=== PATIENT | male | born 1965 | race Caucasian/White ===

== ENCOUNTER 2018-01-31 11:14 | Outpatient (CLI) | payer MEDICAID ==
[2018-01-31 17:36] LABS: BASOPHILS % (AUTO) 0.6 %; EOSINOPHILS # (AUTO) 0.2 10^3/uL (0.0-0.7); EOSINOPHILS % (AUTO) 2.6 %; HGB - HEMOGLOBIN 14.1 g/dL (14.0-18.0); LYMPHOCYTES # (AUTO) 1.6 10^3/uL (1.5-3.5); LYMPHOCYTES % (AUTO) 19.9 %; MEAN CORPUSCULAR HEMOGLOBIN 30.5 pg (27.0-31.0); MEAN CORPUSCULAR VOLUME 92.4 fL (80.0-94.0); MEAN PLATELET VOLUME 9.7 fL (7.4-11.4); MONOCYTES # (AUTO) 0.9 10^3/uL (0.0-1.0); NEUTROPHILS # (AUTO) 5.3 10^3/uL (1.5-6.6); NEUTROPHILS % (AUTO) 65.9 %; PLT - PLATELET COUNT 165 10^3/uL (130-450); RED BLOOD COUNT 4.64 10^6/uL (4.70-6.10); RED CELL DISTRIBUTION WIDTH 13.9 % (12.0-15.0); WHITE BLOOD COUNT 8.1 x10^3/uL (4.8-10.8)
[2018-01-31 17:44] LABS: HB2 TOTAL 15.9 g/dL; HEMOGLOBIN A1C 0.63 g/dL; HEMOGLOBIN A1C % 5.8 % (4.6-6.2)
[2018-01-31 17:45] LABS: ALBUMIN 4.7 g/dL (3.2-5.5); ALBUMIN/GLOBULIN RATIO 1.7 (1.0-2.2); ALKALINE PHOSPHATASE 100 IU/L (42-121); ALT ALANINE AMINOTRANSFERASE 82 IU/L (10-60); AST ASPARTATE AMINOTRANSFERASE 56 IU/L (10-42); BILIRUBIN,TOTAL 0.7 mg/dL (0.2-1.0); BUN - BLOOD UREA NITROGEN 14 mg/dL (6-20); CALCIUM 9.3 mg/dL (8.5-10.3); CARBON DIOXIDE - CO2 24 mmol/L (21-32); CHLORIDE 97 mmol/L (101-111); CHOL/HDL RATIO 2.2 (<5.0); CHOLESTEROL 210 mg/dL; CREATININE 0.7 mg/dL (0.6-1.2); GFR - MDRD 118 (>89); GLUCOSE 119 mg/dL (70-100); HDL CHOLESTEROL 94 mg/dL; LDL CHOLESTEROL,CALCULATED 102 mg/dL; LDL/HDL RATIO 1.1 (<3.6); SODIUM 130 mmol/L (135-145); TOTAL PROTEIN 7.5 g/dL (6.7-8.2); VLDL CHOLESTEROL 14 mg/dL
== END 2018-01-31 11:15 | disposition home or self-care (01) ==
LOC: LAB.F 11:14
PROVIDERS: ATTEND Nurse Practitioner Family
DX: I10 Essential (primary) hypertension (principal); R73.02 Impaired glucose tolerance (oral); F32.9 Major depressive disorder, single episode, unspecified; Z13.6 Encounter for screening for cardiovascular disorders; Z12.5 Encounter for screening for malignant neoplasm of prostate
CPT/HCPCS: 36415; 80053; 80061; 83036; 83721; 84153; 84443; 85025

== ENCOUNTER 2018-02-21 14:45 | Outpatient (CLI) | payer MEDICAID ==
--- NOTE | 2018-02-22 09:14 | Ultrasound Report ---
RIGHT UPPER QUADRANT ULTRASOUND: 02/21/2018 CLINICAL INDICATION: Elevated LFTs. TECHNIQUE: Real-time scanning was performed with cash applications representative static images obtained. FINDINGS: The liver measures 16.1 cm. Hepatic echogenicity is diffusely increased, compatible with fatty infiltration. No focal parenchymal lesion or intrahepatic biliary dilatation is present. The common bile duct measures 5 mm. The gallbladder is normal. The right kidney measures 10.4 cm, and demonstrates no hydronephrosis. No free fluid is present. IMPRESSION: FATTY INFILTRATION OF THE LIVER. NO EVIDENCE OF CHOLELITHIASIS OR BILIARY DILATATION. TD: 02/22/2018 08:47
== END 2018-02-21 14:46 | disposition home or self-care (01) ==
LOC: DI 14:45
PROVIDERS: ATTEND Nurse Practitioner Family
DX: R79.89 Other specified abnormal findings of blood chemistry (principal); K76.0 Fatty (change of) liver, not elsewhere classified
CPT/HCPCS: 76705

== ENCOUNTER 2019-02-22 11:21 | Outpatient (CLI) | payer MEDICAID ==
[2019-02-22 17:41] LABS: BASOPHILS % (AUTO) 0.4 %; EOSINOPHILS # (AUTO) 0.2 10^3/uL (0.0-0.7); EOSINOPHILS % (AUTO) 2.6 %; HGB - HEMOGLOBIN 15.3 g/dL (14.0-18.0); LYMPHOCYTES # (AUTO) 1.6 10^3/uL (1.5-3.5); LYMPHOCYTES % (AUTO) 20.9 %; MEAN CORPUSCULAR HEMOGLOBIN 31.1 pg (27.0-31.0); MEAN CORPUSCULAR HGB CONC 33.2 g/dL (32.0-36.0); MEAN CORPUSCULAR VOLUME 93.5 fL (80.0-94.0); MONOCYTES # (AUTO) 0.8 10^3/uL (0.0-1.0); MONOCYTES % (AUTO) 9.8 %; NEUTROPHILS # (AUTO) 5.1 10^3/uL (1.5-6.6); NEUTROPHILS % (AUTO) 66.3 %; PLT - PLATELET COUNT 174 10^3/uL (130-450); RED BLOOD COUNT 4.92 10^6/uL (4.70-6.10); RED CELL DISTRIBUTION WIDTH 12.8 % (12.0-15.0); WHITE BLOOD COUNT 7.8 x10^3/uL (4.8-10.8)
[2019-02-22 18:36] LABS: ALBUMIN 4.5 g/dL (3.2-5.5); ALBUMIN/GLOBULIN RATIO 1.6 (1.0-2.2); ALKALINE PHOSPHATASE 94 IU/L (42-121); ALT ALANINE AMINOTRANSFERASE 67 IU/L (10-60); AST ASPARTATE AMINOTRANSFERASE 42 IU/L (10-42); BILIRUBIN,TOTAL 0.7 mg/dL (0.2-1.0); BUN - BLOOD UREA NITROGEN 17 mg/dL (6-20); CALCIUM 9.7 mg/dL (8.5-10.3); CARBON DIOXIDE - CO2 28 mmol/L (21-32); CHLORIDE 102 mmol/L (101-111); CHOL/HDL RATIO 2.4 (<5.0); CHOLESTEROL 209 mg/dL; CREATININE 0.8 mg/dL (0.6-1.2); GFR - MDRD 100 (>89); GLUCOSE 118 mg/dL (70-100); HDL CHOLESTEROL 88 mg/dL; LDL CHOLESTEROL,CALCULATED 105 mg/dL; LDL/HDL RATIO 1.2 (<3.6); SODIUM 140 mmol/L (135-145); TOTAL PROTEIN 7.3 g/dL (6.7-8.2); VLDL CHOLESTEROL 16 mg/dL
[2019-02-22 18:37] LABS: HEMOGLOBIN A1C 0.56 g/dL; HEMOGLOBIN A1C % 5.4 % (4.6-6.2)
== END 2019-02-22 11:22 | disposition home or self-care (01) ==
LOC: LAB.F 11:21
PROVIDERS: ATTEND Registered Nurse
DX: R79.89 Other specified abnormal findings of blood chemistry (principal); Z13.6 Encounter for screening for cardiovascular disorders; I10 Essential (primary) hypertension
CPT/HCPCS: 36415; 80053; 80061; 83036; 83721; 84443; 85025

== ENCOUNTER 2020-03-18 10:10 | Outpatient (CLI) | payer MEDICAID ==
[2020-03-18 15:13] LABS: BASOPHILS % (AUTO) 0.6 %; EOSINOPHILS # (AUTO) 0.2 10^3/uL (0.0-0.7); EOSINOPHILS % (AUTO) 3.4 %; HGB - HEMOGLOBIN 13.6 g/dL (14.0-18.0); LYMPHOCYTES # (AUTO) 1.4 10^3/uL (1.5-3.5); LYMPHOCYTES % (AUTO) 20.8 %; MEAN CORPUSCULAR HEMOGLOBIN 30.6 pg (27.0-31.0); MEAN CORPUSCULAR HGB CONC 32.2 g/dL (32.0-36.0); MEAN PLATELET VOLUME 11.3 fL (7.4-11.4); MONOCYTES # (AUTO) 0.7 10^3/uL (0.0-1.0); MONOCYTES % (AUTO) 10.3 %; NEUTROPHILS # (AUTO) 4.3 10^3/uL (1.5-6.6); NEUTROPHILS % (AUTO) 64.6 %; PLT - PLATELET COUNT 171 10^3/uL (130-450); RED BLOOD COUNT 4.44 10^6/uL (4.70-6.10); RED CELL DISTRIBUTION WIDTH 13.9 % (12.0-15.0); WHITE BLOOD COUNT 6.7 x10^3/uL (4.8-10.8)
[2020-03-18 15:40] LABS: ALBUMIN 4.5 g/dL (3.2-5.5); ALBUMIN/GLOBULIN RATIO 1.7 (1.0-2.2); ALKALINE PHOSPHATASE 96 IU/L (42-121); ALT ALANINE AMINOTRANSFERASE 47 IU/L (10-60); AST ASPARTATE AMINOTRANSFERASE 39 IU/L (10-42); BILIRUBIN,TOTAL 0.6 mg/dL (0.2-1.0); BUN - BLOOD UREA NITROGEN 12 mg/dL (6-20); CALCIUM 9.5 mg/dL (8.5-10.3); CARBON DIOXIDE - CO2 29 mmol/L (21-32); CHLORIDE 104 mmol/L (101-111); CHOLESTEROL 212 mg/dL; CREATININE 0.7 mg/dL (0.6-1.2); GLUCOSE 108 mg/dL (70-100); HDL CHOLESTEROL 106 mg/dL; LDL CHOLESTEROL,CALCULATED 96 mg/dL; LDL/HDL RATIO 0.9 (<3.6); SODIUM 140 mmol/L (135-145); TOTAL PROTEIN 7.1 g/dL (6.7-8.2); VLDL CHOLESTEROL 10 mg/dL
[2020-03-18 15:46] LABS: PSA FREE 0.056 ng/mL (0.16-2.81)
[2020-03-18 15:47] LABS: PSA TOTAL 0.332 ng/mL (0.000-2.000)
== END 2020-03-18 10:11 | disposition home or self-care (01) ==
LOC: LAB.S 10:10
PROVIDERS: ATTEND Registered Nurse
DX: R73.9 Hyperglycemia, unspecified (principal); R79.89 Other specified abnormal findings of blood chemistry; R00.2 Palpitations; F32.9 Major depressive disorder, single episode, unspecified; I10 Essential (primary) hypertension; Z12.5 Encounter for screening for malignant neoplasm of prostate
CPT/HCPCS: 36415; 80053; 80061; 83721; 84153; 84154; 84443; 85025

== ENCOUNTER 2020-05-12 17:18 | Outpatient (CLI) | payer MEDICAID ==
--- NOTE | 2020-05-12 17:53 | XRAY Report ---
PROCEDURE: Hip w/Pelvis 2-3V RT INDICATIONS: RT GROIN PAIN TECHNIQUE: AP pelvis with lateral view(s) of the right hip(s). COMPARISON: 12/25/2015. FINDINGS: Bones: No fractures or dislocations. Asymmetric severe right hip joint osteophytic changes are seen . No evidence of avascular necrosis of femoral head. Mild to moderate left hip joint osteoarthritis i s also noted. Pelvic ring appears intact. No suspicious bony lesions. Soft tissues: The visualized bowel gas pattern is normal. No suspicious soft tissue calcifications. IMPRESSION: Severe right hip joint osteophyte is. No fracture or dislocation. No evidence of avascula r necrosis of femoral head. Reviewed by: Timothy Russell MD on 05/12/2020 5:52 PM PDT Approved by: Timothy Russell MD on 05/12/2020 5:52 PM PDT Station ID: [id number]
== END 2020-05-12 17:19 | disposition home or self-care (01) ==
LOC: DI 17:18
PROVIDERS: ATTEND Registered Nurse
DX: M25.751 Osteophyte, right hip (principal)

== ENCOUNTER 2020-09-02 13:40 | Outpatient (CLI) | payer MEDICAID ==
[2020-09-02 20:00] LABS: BASOPHILS # (AUTO) 0.1 10^3/uL (0.0-0.1); BASOPHILS % (AUTO) 0.7 %; EOSINOPHILS # (AUTO) 0.2 10^3/uL (0.0-0.7); EOSINOPHILS % (AUTO) 2.5 %; HGB - HEMOGLOBIN 13.9 g/dL (14.0-18.0); LYMPHOCYTES # (AUTO) 1.7 10^3/uL (1.5-3.5); MEAN CORPUSCULAR HEMOGLOBIN 31.2 pg (27.0-31.0); MEAN CORPUSCULAR HGB CONC 32.9 g/dL (32.0-36.0); MEAN CORPUSCULAR VOLUME 94.8 fL (80.0-94.0); MEAN PLATELET VOLUME 11.9 fL (7.4-11.4); MONOCYTES # (AUTO) 0.9 10^3/uL (0.0-1.0); MONOCYTES % (AUTO) 10.9 %; NEUTROPHILS # (AUTO) 5.5 10^3/uL (1.5-6.6); NEUTROPHILS % (AUTO) 65.5 %; PLT - PLATELET COUNT 176 10^3/uL (130-450); RED BLOOD COUNT 4.46 10^6/uL (4.70-6.10); RED CELL DISTRIBUTION WIDTH 12.9 % (12.0-15.0); WHITE BLOOD COUNT 8.4 x10^3/uL (4.8-10.8)
[2020-09-02 20:20] LABS: ALBUMIN 4.4 g/dL (3.2-5.5); ALBUMIN/GLOBULIN RATIO 1.6 (1.0-2.2); BILIRUBIN,TOTAL 0.6 mg/dL (0.2-1.0); CALCIUM 9.5 mg/dL (8.5-10.3); CREATININE 0.8 mg/dL (0.6-1.2); TOTAL PROTEIN 7.2 g/dL (6.7-8.2)
== END 2020-09-02 13:41 | disposition home or self-care (01) ==
LOC: LAB.S 13:40
PROVIDERS: ATTEND Family Medicine
DX: I10 Essential (primary) hypertension (principal); R73.9 Hyperglycemia, unspecified; M16.11 Unilateral primary osteoarthritis, right hip
CPT/HCPCS: 36415; 80053; 85025

== ENCOUNTER 2020-09-18 11:48 | Outpatient (CLI) | payer MEDICAID | END 2020-09-18 11:49 | disposition home or self-care (01) | LOC: LAB 11:48 | PROVIDERS: ATTEND Orthopaedic Surgery | DX: Z01.812 Encounter for preprocedural laboratory examination (principal); Z20.828 Contact with and (suspected) exposure to other viral communicable diseases; M16.11 Unilateral primary osteoarthritis, right hip ==

== ENCOUNTER 2020-09-23 07:03 | Day surgery (SDC) | payer MEDICAID ==
[~2020-09-23 07:03] MED LIST: ACETAMINOPHEN 1,000 MG/100 ML 100 ML IV ONE; CELECOXIB 100 MG CAPSULE PO ONE; DEXAMETHASONE 10 MG/ML VIAL ONE; GABAPENTIN 400 MG CAPSULE ONE; ceFAZolin 2 GM/50 ML 2 GM/50 ML BAG IV ONE
[2020-09-23] MEDS ORDERED: LACTATED RINGERS 1,000 ML IV ONE (07:15)
[2020-09-23] MEDS ORDERED: fentaNYL 100 MCG/2 ML VIAL ONE (07:25)
[2020-09-23] MEDS ORDERED: MIDAZOLAM 2 MG/2 ML VIAL ONE ×2 (07:25→08:55)
[2020-09-23] MEDS ORDERED: KETAMINE 500 MG/10 ML VIAL ONE (07:26)
[2020-09-23] MEDS ORDERED: LIDOCAINE-MPF 2% 5 ML VIAL ONE (07:27)
[2020-09-23] MEDS ORDERED: PROPOFOL 200 MG/20 ML VIAL IVP ONE ×2 (07:28→10:37)
[2020-09-23] MEDS ORDERED: ROPIVACAINE 0.2% PF 20ML VIAL ONE ×4 (07:28→09:16)
[2020-09-23] MEDS ORDERED: DEXAMETHASONE 4 MG/ML VIAL ONE (07:29)
[2020-09-23] MEDS ORDERED: SUCCINYLCHOLINE 200 MG/10 ML VIAL ONE (07:29)
[2020-09-23] MEDS ORDERED: ePHEDrine 50 MG/ML VIAL IVP ONE (07:30)
[2020-09-23] MEDS ORDERED: KETOROLAC 30 MG/ML VIAL ONE (07:30)
[2020-09-23] MEDS ORDERED: ONDANSETRON 4 MG/2 ML VIAL ONE (07:30)
[2020-09-23] MEDS ORDERED: SODIUM CHLORIDE 0.9% 10 ML ONE (07:35)
--- NOTE | 2020-09-23 08:11 | ANESTHESIA ---
Pre-Anesthesia VS, & Labs - Diagnosis Right Hip Osteoarthritis - Procedure RTHA Vital Signs: Temp Pulse Resp BP Pulse Ox 36.2 C L 75 16 146/92 H 98 09/23/20 07:09 09/23/20 07:09 09/23/20 07:09 09/23/20 07:09 09/23/20 07:09 Height: 5 ft 7 in Weight (kg): 83.5 kg Body Mass Index: 28.8 BMI Classification: Overweight - NPO >8 hours Home Medications and Allergies Home Medications: Ambulatory Orders Lisinopril [Zestril] 20 mg PO DAILY 09/15/20 Loratadine [Claritin] 10 mg PO DAILY PRN 09/15/20 Metoprolol Succinate 100 mg PO DAILY 02/18/16 Sertraline HCl 100 mg PO DAILY 02/18/16 Lisinopril [Zestril] 20 mg PO DAILY 09/15/20 Loratadine [Claritin] 10 mg PO DAILY PRN 09/15/20 Allergies/Adverse Reactions: Allergies Allergy/AdvReac Type Severity Reaction Status Date / Time No Known Drug Allergies Allergy Verified 02/18/16 13:46 Anes History & Medical History - Anesthetic History Anesthesia Complications: reports: No previous complications Family history of Anesthesia Complications: Denies Family history of Malignant Hyperthermia: Denies - Medical History Cardiovascular: reports: Hypertension Pulmonary: reports: None Gastrointestinal: reports: None Urinary: reports: None Musculoskeletal: reports: None Endocrine/Autoimmune: reports: None Skin: reports: None Psychosocial: reports: Depression, Anxiety, Alcohol (ETOH 3 per evening), Cannabis History of Cancer?: No - Surgical History General: Colonoscopy Eyes Ears Nose Throat (EENT): Tonsil/Adenoidectomy Exam General: Alert, Oriented x3, Cooperative, No acute distress Dental: WNL Mouth Openin Fingerbreadth Neck Mobility: Normal Mallampati classification: II Thyromental Distance: 4-6 cm Respiratory: Lungs clear Cardiovascular: Regular rate Plan Anesthesia Type: General, Fascia Iliaca Block Consent for Procedure(s) Verified and Reviewed: Yes Code Status: Attempt Resuscitation ASA classification: 2-Mild systemic disease Is this case an emergency?: No (Discussed anesthesia and permit signed)
[2020-09-23] MEDS ORDERED: HYDROmorphone 0.5 MG/0.5 ML SYRINGE IVP PRN (08:14)
[2020-09-23] MEDS ORDERED: NALOXONE 0.4 MG/ML VIAL IVP PRN (08:14)
[2020-09-23] MEDS ORDERED: ATROPINE ABBOJECT 1 MG/10 ML SYRINGE IVP PRN (08:14)
[2020-09-23] MEDS ORDERED: MORPHINE 2 MG/ML CARPUJECT IVP PRN (08:14)
[2020-09-23] MEDS ORDERED: ONDANSETRON 4 MG/2 ML VIAL IVP PRN ×2 (08:14→11:32)
[2020-09-23] MEDS ORDERED: fentaNYL 100 MCG/2 ML VIAL IVP PRN (08:14)
[2020-09-23] MEDS ORDERED: METOCLOPRAMIDE 10 MG/2 ML VIAL IVP PRN (08:14)
[2020-09-23] MEDS ORDERED: ePHEDrine 50 MG/ML VIAL IVP PRN (08:14)
[2020-09-23] MEDS ORDERED: PROPOFOL 500 MG/50 ML 500 MG/50 ML VIAL ONE (08:40)
[2020-09-23] MEDS ORDERED: LACTATED RINGERS 1,000 ML IV SCH (09:00)
[2020-09-23] MEDS ORDERED: ROPIVACAINE 0.2% PF 20ML VIAL SUBQ ONE (11:00)
--- NOTE | 2020-09-23 11:26 | OPERATIVE REPORT ---
Operative Report - General Procedure Date: 09/23/20 Planned Procedure: Right total hip arthroplasty Pre-Op Diagnosis: Osteoarthritis right hip Procedure Performed: Right total hip arthroplasty using the [employer]hew total hip system: Noncem ented femoral and acetabular components using #4 anthology femoral component, high offset 36 mm +4 Oxinium femoral head, 54 mm R3 acetabular component with 20 degree polyethylene acetabular bearing - Procedure Note Primary Surgeon: Jovany Jon MD Secondary Surgeon: Usman PADRON Anesthesia Technique: Spinal Estimated Blood Loss (mL): 200 Indications: This is a 55-year-old man with chronic pain right hip and groin with activities. He is tried nonoperative treatment and is had persistent pain over the past several years with the pain worsening over the past year or so. He had restricted motion and painful motion of the right hip and his routine x-rays showed complete loss of joint space, osteophytes and sclerosis about the hip joint Findings: He had deformity of femoral head, peripheral osteophytes, eburnated bone s urfaces to the femoral head and near complete loss of articular cartilage to the acetabular side as well of the right hip joint Complications: None noted - Other Other Information/Narrative: After satisfactory spinal anesthesia had been achieved, the patient was placed in a lateral decubitus position with the right hip facing superiorly. He was secured in the lateral decubitus position using a pegboard with 2 post securing the torso and 2 posts securing the pelvis. The right hip and right lower extremity were prepped and draped in a sterile manner in the usual fashion. A timeout procedure was performed by the entire operating room team and all were in agreement. A longitudinal incision was made about the lateral right hip beginning at the vastus lateralis ridge of the proximal femur and extending it proximally approximately 3 fingerbreadths above the trochanter. The subcutaneous tissue and fascia magnolia were split in line with the incision. The anterior one third of the gluteus medius was incised at the myotendinous junction. The gluteus medius was retracted medially. The hip capsule was exposed and was split in a T-shaped fashion. Part of the anterior hip capsule was excised. The femoral head was dislocated with flexion, adduction and external rotation. An osteotomy was done to the femoral neck using a osteotomy guide. Retractors were placed behind the femoral neck to protect the soft tissues from the oscillating saw. The proximal femur was retracted. 2 acetabular retractors were placed one anteriorly directly against bone to reduce any soft tissue impingement to femoral nerve. The second retractor was placed more posteriorly directly against bone and preventing any impingement against sciatic nerve. The acetabulum was prepared with a large curette. Medialization of the acetabulum was performed with a small acetabular reamer and then widening was done up to a 53 mm reamer the final reamers were placed in approximately 20 degrees anteversion and 45 degrees of abduction. A trial acetabular component was inserted, 53 mm and this fit well. A permanent 54 mm R3 acetabular 3-hole component was then impacted in 40 degrees of abduction and approximately 20 degrees of anteversion. This had good fixation to push pull and rotation. A single 30 mm superior acetabular screw was inserted. The stability of the acetabular cup was very good. A trial acetabular liner was inserted into the cup. The femoral canal was opened with a box osteotome, starting reamer and then a short broach. Broaching was carried out to a #4. Calcar reaming was performed. Good fit and stability to the #4 stem was achieved. Trial reduction was performed. Hip motion was very good and the hip was stable to dislocation maneuvers. The trial components were removed. A permanent acetabular liner was impacted into the acetabular cup. The #4 Accolade femoral stem was impacted and fully seated. There was good stability to push pull and rotation. A 36 mm +4 head was impacted on the trunnion. The hip was reduced, had good leg length tension and good stability with dislocation maneuvers. 3-minute lavage with dilute Betadine was performed. The hip abductors were repaired at the myotendinous junction with #1 Vicryl. The fascia magnolia was closed with #1 Vicryl. The subcutaneous tissue was closed with 2-0 Vicryl. The skin was closed with a 3-0 Monocryl subcuticular closure and Dermabond. He tolerated the procedure well. A physician kitchen assistant was utilized during the procedure to provide retraction and protection of neurovascular structures as well as to facilitate dislocation and reduction of the hip joint.
[2020-09-23] MEDS ORDERED: oxyCODONE 5 MG TABLET PO PRN (11:32)
[2020-09-23] MEDS ORDERED: SODIUM CHLORIDE FLUSH 0.9% 10 ML SYRINGE IVP PRN (11:32)
[2020-09-23] MEDS ORDERED: LACTATED RINGERS 100 ML IV ONE (11:39)
[2020-09-23] MEDS ORDERED: HYDROcod/ACETAM 5/325 MG TABLET PO PRN (11:51)
[2020-09-23] MEDS ORDERED: HYDROcod/ACETAM 10 MG/325 MG TABLET PO PRN (11:51)
[2020-09-23] MEDS ORDERED: KETOROLAC 15 MG/ML VIAL IVP STA (11:51)
--- NOTE | 2020-09-23 12:20 | XRAY Report ---
PROCEDURE: Hip w/Pelvis 2-3V RT INDICATIONS: postop total right hip TECHNIQUE: AP pelvis with lateral view(s) of the right hip(s). COMPARISON: None. FINDINGS: Bones: No fractures or dislocations. Expected postoperative alignment after right total hip arthropl asty Pelvic ring appears intact. No suspicious bony lesions. Soft tissues: The visualized bowel gas pattern is normal. No suspicious soft tissue calcifications. IMPRESSION: Normal alignment after right total hip arthroplasty. [id number] left hip joint ost eoarthritis also is noted, at the belkofski hip. Reviewed by: Joce Abernathy MD on 09/23/2020 12:19 PM PST Approved by: Joce Abernathy MD on 09/23/2020 12:19 PM PST Station ID: [id number]
--- NOTE | 2020-09-23 15:11 | ANESTHESIA POST OP EVALUATION ---
Anesthesia Post Eval - Post Anesthesia Eval Vitals: Last Vital Signs Temp 36.9 C 09/23/20 12:20 Pulse 62 09/23/20 14:02 Resp 16 09/23/20 14:02 BP 113/69 09/23/20 14:02 Pulse Ox 94 09/23/20 14:02 CV Function Including HR & BP: positive: Stable Pain Control: positive: Satisfactory Nausea & Vomiting: positive: Negative Mental Status: positive: Baseline Hydration Status: Satisfactory Anesthesia Complications: positive: None (awake, alert, comfortable, pleased with care.)
[2020-09-23] MEDS: ceFAZolin 2 GM/50 ML 2 GM/50 ML BAG IV SCH ×2 (15:40→23:09)
[2020-09-23] MEDS: ASPIRIN 325 MG TABLET PO SCH (17:07)
[2020-09-23] MEDS: SODIUM CHLORIDE FLUSH 0.9% 10 ML SYRINGE IVP SCH ×2 (17:08→23:09)
[2020-09-23] MEDS: ACETAMINOPHEN 500 MG TABLET PO SCH ×2 (17:53→23:08)
[2020-09-23] MEDS: CELECOXIB 100 MG CAPSULE PO SCH (20:18)
--- NOTE | 2020-09-23 20:20 | CONSULTATION NOTE ---
Referring Provider Name of Referring Provider:: Brittanoreen Jovany Consult Date: 09/23/20 Chief Complaint - Chief Complaint Chief Complaint: Medical management: Hypertension History of Present Illness - Admitted From Admitted From:: [facility] ED - History Obtained From Records Reviewed: Yes History obtained from: Patient - History of Present Illness HPI Comment/Other: Patient is a 55-year-old male with medical history significant for hypertension, depression and anxiety who was admitted by the orthopedic service for Right hip replacement.The surgery was done this afternoon and he is currently in his room resting comfortably. We were consulted for medical management. The patient denies any pain currently. He denies chest pain, dyspnea, abdominal pain, nausea, vomiting, fever or chills. Since surgery he has had a meal which he tolerated well. He has not yet been weight-bearing on the right. The rest of the history is unremarkable. History - Past Medical History Cardiovascular: reports: Hypertension Respiratory: reports: None Endocrine/Autoimmune: reports: None GI: reports: None : reports: None HEENT: reports: None Psych: reports: Depression, Anxiety Musculoskeletal: reports: None, Osteoarthritis Derm: reports: None MRSA Hx?: No - Past Surgical History General: reports: Colonoscopy HEENT: reports: Tonsil/Adenoidectomy - Family & Social History Family History: Mother: Hypertension, Father: Diabetes, Type 2, Hypertension Social History Notes: He lives at home with his . He is independent of activities of daily living. He does not use tobacco products. He drinks 3 beers daily with dinner. He occasionally uses marijuana. - POLST Patient has POLST: No POLST Status: Full Code Meds/Allgy - Home Medications Home Medications: Ambulatory Orders Medication Instructions Recorded Confirmed Metoprolol Succinate 100 mg PO DAILY 02/18/16 09/15/20 Sertraline HCl 100 mg PO DAILY 02/18/16 09/15/20 Lisinopril [Zestril] 20 mg PO DAILY 09/15/20 09/15/20 Loratadine [Claritin] 10 mg PO DAILY PRN 09/15/20 09/15/20 - Allergies Allergies/Adverse Reactions: Allergies Allergy/AdvReac Type Severity Reaction Status Date / Time No Known Drug Allergies Allergy Verified 02/18/16 13:46 Review of Systems - Constitutional Constitutional: denies: Fatigue, Fever, Chills - Eyes Eyes: denies: Pain, Irritation - Ears, Nose & Throat Ears, Nose & Throat: denies: Ear pain, Sore throat - Cardiovascular Cariovascular: denies: Irregular heart rate, Palpitations, Chest pain, Edema, Lightheadedness, Syncope - Respiratory Respiratory: denies: Cough, Wheezing, Orthopnea, SOB at rest, SOB with exertion - Gastrointestinal Gastrointestinal: denies: Abdominal pain, Abdominal distention, Constipation, Nausea, Vomiting, Coffee grounds emesis, Reflux/heartburn - Genitourinary Genitourinary: denies: Dysuria, Frequency, Urgency, Hematuria - Musculoskeletal Musculoskeletal: denies: Muscle pain, Back pain, Muscle aches - Integumentary Integumentary: denies: Rash, Pruritis, Lesions - Neurological Neurological: denies: General weakness, Focal weakness, Headache - Psychiatric Psychiatric: reports: Depression, Anxiety - Endocrine Endocrine: denies: Polyuria, Polydypsia - Hematologic/Lymphatic Hematologic/Lymphatic: denies: Anemia, Bruising, Petechiae Exam - Vital Signs Vital Signs: Vital Signs x48h Temp Pulse Pulse Pulse Pulse Resp BP 09/23/20 17:59 36.6 C 79 13 09/23/20 15:15 73 75 70 136/96 H 09/23/20 14:02 62 16 09/23/20 12:49 60 13 BP BP BP Pulse Ox 09/23/20 17:59 113/84 H 96 09/23/20 15:15 129/93 H 112/75 09/23/20 14:02 113/69 94 09/23/20 12:49 114/76 96 - Physical Exam General Appearance: positive: No acute distress, Alert Eyes Bilateral: positive: PERRL, EOMI ENT: positive: No signs of dehydration Neck: positive: No JVD, Trachea midline Respiratory: positive: Chest non-tender, No respiratory distress, Breath sounds nml. negative: Wheezes, Rales, Rhonchi Cardiovascular: positive: Regular rate & rhythm, No murmur Abdomen: positive: Non-tender, No organomegaly, Nml bowel sounds, No distention. negative: Guarding, Rebound Back: positive: Nml inspection Skin: positive: Color nml, No rash, Warm, Dry Extremities: positive: Non-tender, No pedal edema Neurologic/Psychiatric: positive: Oriented x3, Mood/affect nml Conclusion/Plan - Diagnosis Diagnosis: Osteoarthritis right hip. Hypertension. Depression and anxiety - Plan Plan: 1. Osteoarthritis right hip: Patient is postop day 0 for right total hip replacement. Orthopedics is primary and managing. PT/OT to see patient tomorrow 2. Hypertension: Currently normotensive. Will resume patient's metoprolol succinate 100 mg p.o. daily and lisinopril 20 mg p.o. daily. 3. Depression anxiety On sertraline
[2020-09-23] MEDS ORDERED: ethyl alcohoL 62% SWAB AMPULE NAS SCH (21:00)
[2020-09-23] MEDS ORDERED: LORATADINE 10 MG TABLET PO PRN (21:54)
[2020-09-24 04:44] LABS: BASOPHILS % (AUTO) 0.3 %; EOSINOPHILS % (AUTO) 0.1 %; LYMPHOCYTES # (AUTO) 1.1 10^3/uL (1.5-3.5); LYMPHOCYTES % (AUTO) 8.3 %; MEAN CORPUSCULAR HEMOGLOBIN 31.4 pg (27.0-31.0); MEAN CORPUSCULAR HGB CONC 33.1 g/dL (32.0-36.0); MEAN CORPUSCULAR VOLUME 94.9 fL (80.0-94.0); MONOCYTES # (AUTO) 1.3 10^3/uL (0.0-1.0); MONOCYTES % (AUTO) 10.1 %; NEUTROPHILS # (AUTO) 10.4 10^3/uL (1.5-6.6); NEUTROPHILS % (AUTO) 80.6 %; PLT - PLATELET COUNT 141 10^3/uL (130-450); RED CELL DISTRIBUTION WIDTH 12.3 % (12.0-15.0); WHITE BLOOD COUNT 12.9 x10^3/uL (4.8-10.8)
[2020-09-24 05:02] LABS: CALCIUM 8.9 mg/dL (8.5-10.3); CREATININE 0.9 mg/dL (0.6-1.2)
[2020-09-24] MEDS: ACETAMINOPHEN 500 MG TABLET PO SCH (05:35)
--- NOTE | 2020-09-24 07:55 | PROVIDER PROGRESS NOTE ---
Subjective - General Procedure Date: 09/23/20 Post Op Days: 1 Procedure Performed: Right VARUN - Review of Systems Wound/Incisions: positive: Dressing dry and intact (Mild stiffness right hip otherwise no symptoms reported) Objective - Patient Data Reviewed Vital Signs: Yes Vital Signs: Vital Signs x48h Temp Pulse Resp BP Pulse Ox 09/24/20 04:11 36.7 C 70 12 125/78 97 09/24/20 00:40 36.6 C 69 18 114/69 97 Weight: Weight 09/22/20 09/23/20 09/24/20 23:59 23:59 23:59 Weight (kg) 83.5 kg Intake & Output: Intake and Output Totals x24h 09/22/20 09/23/20 09/24/20 23:59 23:59 23:59 Intake Total 2690 Output Total 725 300 Balance 1965 -300 - Lab Results Lab Results: 09/24/20 04:05 09/24/20 04:05 Other Lab Results: Lab Results x24hrs 09/24/20 09/24/20 Range/Units 04:05 04:05 WBC 12.9 H (4.8-10.8) x10^3/uL RBC 3.50 L (4.70-6.10) 10^6/uL Hgb 11.0 L (14.0-18.0) g/dL Hct 33.2 L (42.0-52.0) % MCV 94.9 H (80.0-94.0) fL MCH 31.4 H (27.0-31.0) pg MCHC 33.1 (32.0-36.0) g/dL RDW 12.3 (12.0-15.0) % Plt Count 141 (130-450) 10^3/uL MPV 11.0 (7.4-11.4) fL Neut # (Auto) 10.4 H (1.5-6.6) 10^3/uL Lymph # (Auto) 1.1 L (1.5-3.5) 10^3/uL Darke # (Auto) 1.3 H (0.0-1.0) 10^3/uL Eos # (Auto) 0.0 (0.0-0.7) 10^3/uL Baso # (Auto) 0.0 (0.0-0.1) 10^3/uL Absolute Nucleated RBC 0.00 x10^3/uL Nucleated RBC % 0.0 /100WBC Sodium 137 (135-145) mmol/L Potassium 4.2 (3.5-5.0) mmol/L Chloride 100 L (101-111) mmol/L Carbon Dioxide 27 (21-32) mmol/L Anion Gap 10.0 (6-13) BUN 21 H (6-20) mg/dL Creatinine 0.9 (0.6-1.2) mg/dL Estimated GFR (MDRD) 87 L (>89) Glucose 132 H (70-100) mg/dL Calcium 8.9 (8.5-10.3) mg/dL - Imaging Results Radiology Imaging: positive: Final report received (Good anatomical alignment after total hip arthroplasty. No loosening hardware) - Current Medications Current Medications: Current Medications Generic Name Dose Route Start Last Admin Trade Name Freq PRN Reason Stop Dose Admin Acetaminophen 1,000 mg 09/23/20 18:00 09/24/20 05:35 Acetaminophen 500 Mg Tablet PO 1,000 mg Q6HR NELA Administration Alcohol 1 amp 09/23/20 21:00 09/23/20 19:38 Ethyl Alcohol 62% Swab Ampule KATHE Not Given BID NELA Aspirin 325 mg 09/23/20 17:00 09/23/20 17:07 Aspirin 325 Mg Tablet PO 325 mg BIDWM NELA Administration Celecoxib 200 mg 09/23/20 21:00 09/23/20 20:18 Celecoxib 100 Mg Capsule PO 200 mg BID NELA Administration Sodium Chloride 10 ml 09/23/20 17:00 09/23/20 23:09 Sodium Chloride Flush 0.9% 10 Ml Syringe IVP 10 ml 0100,0900,1700 NELA Administration - Physical Exam Wound/Incisions: positive: Dressing dry and intact Extremities: positive: Non-tender Neurologic/Psychiatric: positive: Oriented x3 Impression/Plan - Problem List Problem List: Patient doing well only symptoms reported is "some soreness right hip". Patient is doing well on physical therapy and occupational therapy sessions denies pain, only has discomfort.Patient's vitals have been stable, patient has voided. Patient shows no signs or symptoms of infection dressing is intact clean and dry. Patient has been instructed that he may shower with his closure and dressing. Patient has follow-up appointment already scheduled for this 09/28/2020. Assuming he is meeting safe discharge criteria per PT OT patient needs orthopedic surgery criteria for discharge today.
[2020-09-24] MEDS: ASPIRIN 325 MG TABLET PO SCH (08:08)
[2020-09-24] MEDS: CELECOXIB 100 MG CAPSULE PO SCH (08:09)
[2020-09-24] MEDS: SODIUM CHLORIDE FLUSH 0.9% 10 ML SYRINGE IVP SCH (08:16)
[2020-09-24] MEDS ORDERED: lisinopriL 20 MG TABLET PO SCH (09:00)
[2020-09-24] MEDS ORDERED: METOPROLOL SUCCINATE 50 MG TABLET PO SCH (09:00)
[2020-09-24] MEDS ORDERED: SERTRALINE 50 MG TABLET PO SCH (09:00)
[2020-09-24 11:23] VITALS: BP 112/75
== END 2020-09-24 11:00 | disposition home or self-care (01) ==
LOC: SDS 07:03 → ICU 12:07 → SDS 09-24 11:00
PROVIDERS: ATTEND Orthopaedic Surgery
DX: M16.11 Unilateral primary osteoarthritis, right hip (principal); I10 Essential (primary) hypertension; F32.9 Major depressive disorder, single episode, unspecified; F41.9 Anxiety disorder, unspecified; Z72.89 Other problems related to lifestyle
CPT/HCPCS: 27130; 36415; 73502; 80048; 85025; 97116; 97162; 97165; 97530; A9270; J0131; J0330; J0690; J2795; J7120

== ENCOUNTER 2020-11-09 14:57 | Outpatient (CLI) | payer MEDICAID ==
--- NOTE | 2020-11-09 16:51 | XRAY Report ---
PROCEDURE: Hip w/Pelvis 1V RT INDICATIONS: OSTEOARTHRITIS, R HIP TECHNIQUE: AP pelvis with lateral view(s) of the right hip(s). COMPARISON: X-ray pelvis 09/23/2020 FINDINGS: Bones: No fractures or dislocations. Pelvic ring appears intact. No suspicious bony lesions. Righ t hip arthroplasty is stable. There is mild to moderate degenerative narrowing of the left hip joint with articular osteophyte. Soft tissues: The visualized bowel gas pattern is normal. No suspicious soft tissue calcifications. IMPRESSION: Interval appearance of right hip arthroplasty as well as left hip osteoarthritis. Reviewed by: Yamilex Rubio MD on 11/09/2020 4:49 PM PST Approved by: Yamilex Rubio MD on 11/09/2020 4:49 PM PST Station ID: [id number]
== END 2020-11-09 23:59 | disposition home or self-care (01) ==
LOC: DI.N 14:57
PROVIDERS: ATTEND Physician Assistant
DX: M16.12 Unilateral primary osteoarthritis, left hip (principal); Z96.641 Presence of right artificial hip joint

== ENCOUNTER 2022-02-11 09:56 | Outpatient (CLI) | payer MEDICAID ==
[2022-02-11 14:54] LABS: BASOPHILS # (AUTO) 0.1 10^3/uL (0.0-0.1); BASOPHILS % (AUTO) 0.7 %; EOSINOPHILS # (AUTO) 0.2 10^3/uL (0.0-0.7); EOSINOPHILS % (AUTO) 2.6 %; HCT - HEMATOCRIT 43.7 % (42.0-52.0); HGB - HEMOGLOBIN 14.5 g/dL (14.0-18.0); LYMPHOCYTES # (AUTO) 1.9 10^3/uL (1.5-3.5); LYMPHOCYTES % (AUTO) 23.4 %; MEAN CORPUSCULAR HEMOGLOBIN 31.2 pg (27.0-31.0); MEAN CORPUSCULAR HGB CONC 33.2 g/dL (32.0-36.0); MEAN PLATELET VOLUME 11.5 fL (7.4-11.4); MONOCYTES # (AUTO) 0.9 10^3/uL (0.0-1.0); MONOCYTES % (AUTO) 10.7 %; NEUTROPHILS % (AUTO) 62.2 %; PLT - PLATELET COUNT 159 10^3/uL (130-450); RED BLOOD COUNT 4.65 10^6/uL (4.70-6.10)
[2022-02-11 16:36] LABS: THYROID STIMULATING HORMONE 1.55 uIU/mL (0.34-5.60)
[2022-02-11 16:44] LABS: ALBUMIN 4.6 g/dL (3.2-5.5); ALBUMIN/GLOBULIN RATIO 1.8 (1.0-2.2); ALKALINE PHOSPHATASE 89 IU/L (42-121); ALT ALANINE AMINOTRANSFERASE 83 IU/L (10-60); AST ASPARTATE AMINOTRANSFERASE 66 IU/L (10-42); BILIRUBIN,TOTAL 0.8 mg/dL (0.2-1.0); BUN - BLOOD UREA NITROGEN 13 mg/dL (6-20); CALCIUM 9.9 mg/dL (8.5-10.3); CARBON DIOXIDE - CO2 26 mmol/L (21-32); CHLORIDE 101 mmol/L (101-111); CHOL/HDL RATIO 2.3 (<5.0); CHOLESTEROL 220 mg/dL; CREATININE 0.8 mg/dL (0.6-1.2); GFR - MDRD 99 (>89); GLUCOSE 113 mg/dL (70-100); HDL CHOLESTEROL 95 mg/dL; LDL CHOLESTEROL,CALCULATED 113 mg/dL; LDL/HDL RATIO 1.2 (<3.6); POTASSIUM 4.6 mmol/L (3.5-5.0); SODIUM 136 mmol/L (135-145); TOTAL PROTEIN 7.2 g/dL (6.7-8.2); TRIGLYCERIDES 62 mg/dL; VLDL CHOLESTEROL 12 mg/dL
== END 2022-02-11 09:57 | disposition home or self-care (01) ==
LOC: LAB.S 09:56
PROVIDERS: ATTEND Registered Nurse
DX: I10 Essential (primary) hypertension (principal); Z12.5 Encounter for screening for malignant neoplasm of prostate; Z13.29 Encounter for screening for other suspected endocrine disorder; M16.11 Unilateral primary osteoarthritis, right hip; Z13.220 Encounter for screening for lipoid disorders; F32.A Depression, unspecified
CPT/HCPCS: 36415; 80053; 80061; 83721; 84153; 84443; 85025